=== PATIENT | male | born 1965 | race African-American/Black ===

== ENCOUNTER 2020-11-12 08:33 | Emergency (ER) | payer MEDICAID ==
[~2020-11-12] VITALS: Ht 170.2 cm; Wt 135.8 kg
--- NOTE | 2020-11-12 09:11 | NUR ---
EKG done in triage.
--- NOTE | 2020-11-12 09:23 | NUR ---
TO ROOM 17 FROM LOBBY
--- NOTE | 2020-11-12 09:42 | NUR ---
BIB [facility] FOR SOB PT STATES HAS A SORE THROAT THAT HAS BEEN GOING ON FOR 2 MONTHS WITH 9/10 PAIN AND REFLUXING CLEAR LIQUID SIGNIFICANT AMOUNTS WHILE SLEEPING OR WHILE SITTING UP . PT STATES WAS MACED LAST NIGHT AND BREATHING HAS BECOME WORSE SORE THROAT WORSE CP THAT IS IN THE CENTER OF CHEST AND RADIATES UP TO THROAT.
[2020-11-12] MEDS ORDERED: DEXAMETHASONE 4 MG TABLET ONE (10:20)
--- NOTE | 2020-11-12 10:31 | NUR ---
MEDICATED NOTED ON MAR. PT IN NO DISTRESS, WILL CONTINUE TO MONITOR
[2020-11-12] MEDS ORDERED: DEXAMETHASONE 4 MG TABLET PO ONE (11:00)
--- NOTE | 2020-11-12 12:16 | NUR ---
BLADDER SCAN PREFORMED WITH 38ML RESIDUL POST VOID.
--- NOTE | 2020-11-12 12:17 | NUR ---
PT PAIN RELIEVED AFTER BEING MEDICATED DOWN TO 3/10 PAIN IN RIGHT HIP.
[2020-11-12] MEDS ORDERED: HYDROcodone/APAP 5/325 TABLET ONE (13:14)
--- NOTE | 2020-11-12 13:15 | NUR ---
VERBAL TO MEDICATE PT WITH NORCO 5MG PER DR. VASQUEZ PRIOR TO DISCHARGE. IN FRONT OF DISCHARGE NURSE.
--- NOTE | 2020-11-12 13:16 | NUR ---
CORRECTION TO NOTE: ORDER FOR NORCO 5 MG ONE TAB PO VERBALLY FROM DR VASQUEZ. PEDRO THEN OFF FLOOR AND ORDER PLACED VERBAL BY RN
[2020-11-12 13:17] VITALS: BP 187/88
--- NOTE | 2020-11-12 13:35 | NUR ---
CARE FOR DC ONLY PROVIDED. PT DRESSED, AMB TO BR GAIT STEADY. NO IV TO DC. PT WITH SOME IMPROVEMENT OF PAIN. PT DENIES DRIVING. REVIEWED DC INSTRUCTIONS WITH PT, UNDERSTANDING VERBALIZED. PT LEFT AMB.
[2020-11-12] MEDS ORDERED: HYDROcodone/APAP 5/325 TABLET PO ONE (14:00)
== END 2020-11-12 13:38 | disposition home or self-care (01) ==
LOC: ED 09:26
DX: H10.213 Acute toxic conjunctivitis, bilateral (principal); R06.02 Shortness of breath; J02.8 Acute pharyngitis due to other specified organisms; R94.31 Abnormal electrocardiogram [ECG] [EKG]; I11.0 Hypertensive heart disease with heart failure; I50.9 Heart failure, unspecified; J44.9 Chronic obstructive pulmonary disease, unspecified
CPT/HCPCS: 87081; 87147; 87880; 93005; 99285

== ENCOUNTER 2020-11-30 04:08 | Inpatient (IN) | payer MEDICAID ==
[2020-11-30] VITALS (11 sets, daily range): BP systolic 114–147; BP diastolic 81–102
[~2020-11-30] VITALS: Ht 170.2 cm; Wt 139.7 kg
[2020-11-30] MEDS ORDERED: DIPHENHYDRAMINE 50 MG/ML, 1ML ONE (04:15)
[2020-11-30] MEDS ORDERED: methylPREDNISolone SOD SUCC 125 MG/2 ML ONE (04:15)
[2020-11-30] MEDS ORDERED: EPINEPHRINE 1 MG/ML, 1ML ONE (04:15)
--- NOTE | 2020-11-30 04:18 | NUR ---
RN ADMIT: PT CAME INTO ED THIS AM DUE TO ANGIOEDEMA STARTING YESTERDAY PM 1999, SAYS IT HAS BEEN WORSENING SINCE THAT TIME. PT IS PROTECTING AIRWAY BUT STATING BREATHING HAS BECOME MORE DIFFICULT. PT UNABLE TO CLOSE MOUTH COMPLETELY AT THIS TIME. RECENTLY DAIGNOSED AND TREATED FOR STREP THROAT WITH PENCILLINS, PT IS ON LISINOPRIL FOR HTN. PT PLACED ON SPO2/BP/ECG MONITORING, WCTM. CHENCHO PRIMARY RN AT BS, NIEVES GUTHRIE AT BS FOR EVAL AND POC. PT MEDICATED PER AUG. IV ACCESS ESTABLISHED. PT SUCTIONING SALIVA FOR COMFORT.
[2020-11-30] MEDS ORDERED: ALBUTEROL SULFATE 2.5MG/0.5ML ONE (04:19)
[2020-11-30] MEDS ORDERED: RACEPINEPHRINE INH 2.25%, 0.5ML ONE (04:21)
--- NOTE | 2020-11-30 04:27 | NUR ---
PT SITTING UP IN BED, AND NEB TREATMENT ON, AND RT AT BEDSIDE, MD AT BEDSIDE, AND PT ON CR MONITOR, AND MEDS GIVEN. PT IN A MORE COMFORTABLE STATE AT THIS TIME.
[2020-11-30] MEDS ORDERED: DIPHENHYDRAMINE 50 MG/ML, 1ML IVPush ONE (04:30)
[2020-11-30] MEDS ORDERED: methylPREDNISolone SOD SUCC 125 MG/2 ML IVPush ONE (04:30)
[2020-11-30] MEDS ORDERED: ALBUTEROL SULFATE 2.5MG/0.5ML NPPB ONE (04:30)
[2020-11-30] MEDS ORDERED: EPINEPHRINE 1 MG/ML, 1ML SQ ONE (04:30)
[2020-11-30] MEDS ORDERED: ALBUTEROL SULFATE 2.5 MG/3 ML ONE (04:31)
--- NOTE | 2020-11-30 04:34 | NUR ---
PT MOUTH SUCTIONED CONTINUOUSLY FOR DROOL AND PT MAINTAINING AIRWAY AND BREATHING NEB TREATMENT. OVEN ATTENDANT TO BEDSIDE TO TYPE AND CROSS PT FOR FFP AND DRAW LABS.
[2020-11-30 04:36] LABS: BASOPHILS % (AUTO) 1 % (0-1); EOSINOPHILS % (AUTO) 2 % (1-7); LYMPHOCYTES % (AUTO) 38 % (22-44); MEAN CORPUSCULAR HEMOGLOBIN 29.3 pg (27.5-34.5); MEAN CORPUSCULAR HGB CONC 33.2 g/dL (33.2-36.2); MEAN PLATELET VOLUME 8.4 fL (7.4-10.4); MONOCYTES % (AUTO) 11 % (2-9); NEUTROPHILS % (AUTO) 49 % (42-75); PLATELET COUNT 296 x10^3/uL (130-400); RED BLOOD COUNT 5.08 x10^6/uL (4.38-5.82); RED CELL DISTRIBUTION WIDTH 15.5 % (9.4-14.8)
[2020-11-30 04:38] LABS: ALBUMIN 3.4 g/dL (3.4-5.0); ANION GAP 8 mmol/L (5-15); CALCIUM 8.6 mg/dL (8.5-10.1); CHLORIDE 108 mmol/L (98-107); CREATININE 1.13 mg/dL (0.7-1.3)
[2020-11-30] MEDS ORDERED: FENTANYL PF 100 MCG/2ML ONE (04:50)
--- NOTE | 2020-11-30 05:00 | NUR ---
IVF STARTED WITH BLOOD TUBING, AWAITING FFP TO BE READY. MD TO BEDSIDE AND EVALUATED PT. PT STATES HE FEELS BETTER AND HAS LESS SWELLING ON HIS TONGUE, BUT IS STILL PRETTY SWOLLEN. PAIN MEDS ORDERED AND ADMINISTERED, SEE EMAR. PTS O2 INCREASED TO 4LPM VIA NC, TO INCREASE O2 SATS OF 90%. 02 SATS NOW 95%
--- NOTE | 2020-11-30 06:09 | NUR ---
FFP INFUSING, SEE TRANSFUSION NOTES FOR Q15MIN VITAL SIGNS. PT RESTING COMFORTABLY, HOLDING SUCTION YANKER IN HAND, AND SELF SUCTIONING WHEN NEEDED, NO REACTION NOTED OF YET, WITH FFP INFUSING AT 45 MIN NOW. PT ON CR MONITOR, MAINTAINING AIRWAY, GOOD AERATION AND OXYGENATION ON 4 LPM OF O2 ON NC.
--- NOTE | 2020-11-30 06:50 | NUR ---
assumed care of pt, report from [facility]. pt here for angioedema. pt has been medicated and FFP currently infusing. pt has profuse swelling to toungue, but states that it has improved since medication administration. pt is able to maintain his airway and is talking. pt is able to swallow, but has suction yankauer for comfort. mild swelling noted to lower lip. pt states that he has a mild sore throat and that he was recently treated for strep. pt reports that he competed his course of PO ABX. positioning for comfort. no family at bedside. updated on POC. pt is curtrently on 4L NC for supplemental oxygen support pt report that he does not have a ride home, that he will be taking a cab. when asked if pt has someone to stay with him today he stated yes
--- NOTE | 2020-11-30 07:00 | NUR ---
transfusion completed. well tolerated. no obvious transfusion reaction noted
--- NOTE | 2020-11-30 07:10 | NUR ---
oral swabs have been administered to lips and mouth for comfort. pt has been able to take sips of PO water.
--- NOTE | 2020-11-30 07:44 | NUR ---
pt sleeping Dr. Tovar has been to bedside for recheck pt to be admitted
[2020-11-30] MEDS ORDERED: HYDR-3248 PO (07:50)
[2020-11-30] MEDS ORDERED: HYDR12.517 PO (07:50)
[2020-11-30] MEDS ORDERED: LOVA10TA PO (07:50)
[2020-11-30] MEDS ORDERED: ASPI-963 PO (07:50)
--- NOTE | 2020-11-30 08:13 | NUR ---
security has been to bedside per patient request to place wallet and money in safe
--- NOTE | 2020-11-30 08:17 | NUR ---
admit orders have been recieved with bed assignment. attempting to call report
--- NOTE | 2020-11-30 08:21 | NUR ---
report called to [facility]
--- NOTE | 2020-11-30 08:31 | NUR ---
TP RN: THIS RN WITNESSED SECURITY TAKING BELONGINGS. BELONGINGS CONSISTED OF $41.17 IN [place], PT AGREES. PRIMARY RN UPDATED.
--- NOTE | 2020-11-30 08:31 | NUR ---
hospitalist at bedside for eval
[2020-11-30] MEDS ORDERED: ONDANSETRON 2MG/ML, 2ML IVPush PRN (09:00)
[2020-11-30] MEDS ORDERED: LABETALOL 5MG/ML, 20ML IVPush PRN (09:00)
[2020-11-30] MEDS ORDERED: ACETAMINOPHEN 325 MG TABLET PO PRN (09:00)
[2020-11-30] MEDS ORDERED: GABAPENTIN 300 MG CAPSULE PO PRN (09:00)
[2020-11-30] MEDS: TAMSULOSIN 0.4 MG CAP.ER.24H PO SCH (11:01)
[2020-11-30] MEDS: HYDROcodone/APAP 10/325 MG TABLET PO PRN ×3 (11:01→23:59)
[2020-11-30] MEDS: ENOXAPARIN 40 MG/0.4 ML SQ SCH (11:02)
[2020-11-30] MEDS: ASPIRIN 81 MG TABLET EC PO SCH (11:02)
[2020-11-30] MEDS ORDERED: GABA600T7 PO (14:28)
[2020-11-30] MEDS ORDERED: METF-688 PO (14:29)
[2020-11-30] MEDS ORDERED: CHOL20008 PO (14:30)
[2020-11-30] MEDS: LOVASTATIN 10 MG TABLET PO SCH (20:48)
[2020-12-01] VITALS (7 sets, daily range): BP systolic 124–158; BP diastolic 76–105
[2020-12-01] MEDS: ENOXAPARIN 40 MG/0.4 ML SQ SCH (07:40)
[2020-12-01] MEDS: TAMSULOSIN 0.4 MG CAP.ER.24H PO SCH (07:40)
[2020-12-01] MEDS: ASPIRIN 81 MG TABLET EC PO SCH (07:40)
[2020-12-01] MEDS ORDERED: PLEASE ENTER ALLERGIES MC SCH (08:30)
[2020-12-01 08:58] LABS: ANION GAP 5 mmol/L (5-15); CALCIUM 8.8 mg/dL (8.5-10.1); CHLORIDE 106 mmol/L (98-107); CREATININE 0.99 mg/dL (0.7-1.3)
[2020-12-01] MEDS: HYDROcodone/APAP 10/325 MG TABLET PO PRN ×3 (09:04→21:21)
[2020-12-01] MEDS: METOPROLOL TARTRATE 25 MG TAB PO SCH ×2 (09:05→18:13)
[2020-12-01] MEDS: LOVASTATIN 10 MG TABLET PO SCH (21:21)
[2020-12-02 00:10] VITALS: BP 139/88
[2020-12-02] MEDS: CALCIUM CARBONATE 500 MG TAB.CHEW PO PRN ×2 (04:37→22:36)
[2020-12-02] MEDS: HYDROcodone/APAP 10/325 MG TABLET PO PRN ×3 (04:49→17:24)
[2020-12-02 06:14] VITALS: BP 154/96
[2020-12-02] MEDS: METOPROLOL TARTRATE 25 MG TAB PO SCH ×2 (06:16→17:19)
[2020-12-02 07:49] LABS: TROPONIN I < 0.015 ng/mL (0.000-0.045)
[2020-12-02] MEDS: ASPIRIN 81 MG TABLET EC PO SCH (09:00)
[2020-12-02] MEDS: TAMSULOSIN 0.4 MG CAP.ER.24H PO SCH (09:00)
[2020-12-02] MEDS: ENOXAPARIN 40 MG/0.4 ML SQ SCH (09:00)
[2020-12-02] MEDS ORDERED: REGADENOSON 0.4 MG/5 ML SYRINGE ONE (10:00)
[2020-12-02 12:40] VITALS: BP 126/89
[2020-12-02 19:15] VITALS: BP 135/76
[2020-12-02] MEDS: LOVASTATIN 10 MG TABLET PO SCH (20:37)
[2020-12-02] MEDS ORDERED: ALBUTEROL SULFATE 2.5 MG/3 ML NPPB PRN (22:30)
[2020-12-03 01:46] VITALS: BP 145/80
[2020-12-03] MEDS: ENOXAPARIN 40 MG/0.4 ML SQ SCH (06:12)
[2020-12-03] MEDS: METOPROLOL TARTRATE 25 MG TAB PO SCH (06:12)
[2020-12-03 06:13] VITALS: BP 145/100
[2020-12-03 06:45] VITALS: BP 144/90
[2020-12-03] MEDS ORDERED: IPRATROPIUM 0.5 MG/2.5 ML INHA NPPB SCH (09:00)
[2020-12-03] MEDS: HYDROcodone/APAP 10/325 MG TABLET PO PRN (10:10)
[2020-12-03] MEDS: TAMSULOSIN 0.4 MG CAP.ER.24H PO SCH (10:10)
[2020-12-03] MEDS: ASPIRIN 81 MG TABLET EC PO SCH (10:10)
[2020-12-03 12:10] VITALS: BP 173/89
[2020-12-03] MEDS ORDERED: METO25TA35 PO (14:16)
[2020-12-03] MEDS ORDERED: TAMS-11 PO (14:16)
[2020-12-03] MEDS ORDERED: AMOX1TAB64 PO (14:25)
== END 2020-12-03 15:57 | disposition home or self-care (01) | DRG 811 ==
LOC: ED 05:27 → INTOOBSV 07:26 → EDIP 07:26 → 4WST 08:44 → OBSVTOIN 12-02 13:16
PROVIDERS: ADMIT Hospitalist; ATTEND Hospitalist
DX: T78.3XXA Angioneurotic edema, initial encounter (principal); I47.2 Ventricular tachycardia; R13.10 Dysphagia, unspecified; G62.9 Polyneuropathy, unspecified; F11.20 Opioid dependence, uncomplicated; E66.01 Morbid (severe) obesity due to excess calories; I50.9 Heart failure, unspecified; I11.0 Hypertensive heart disease with heart failure; J44.0 Chronic obstructive pulmonary disease with (acute) lower respiratory infection; T46.4X5A Adverse effect of angiotensin-converting-enzyme inhibitors, initial encounter; J20.9 Acute bronchitis, unspecified; G89.29 Other chronic pain; G47.33 Obstructive sleep apnea (adult) (pediatric); E78.5 Hyperlipidemia, unspecified; F17.210 Nicotine dependence, cigarettes, uncomplicated; Z79.82 Long term (current) use of aspirin; I25.2 Old myocardial infarction; E11.9 Type 2 diabetes mellitus without complications; Z79.84 Long term (current) use of oral hypoglycemic drugs; Z79.891 Long term (current) use of opiate analgesic; Z79.899 Other long term (current) drug therapy; Y92.89 Other specified places as the place of occurrence of the external cause
CPT/HCPCS: 36415; 96372; 96374; 96375; 99291; C8929; 71045; 78452; 80048; 82040; 83735; 84484; 85025; 86850; 86900; 93005; 93017; 94640; G0378; J0171; J1650; J2785; Q9957; A9502; J1200; J2930; P9017